=== PATIENT | female | born 1960 | race African-American/Black ===

== ENCOUNTER 2017-11-05 11:25 | Inpatient (IN) | payer OTHER ==
--- NOTE | 2017-11-05 12:16 | RAD REPORT ---
EXAM DESCRIPTION: RAD - Chest Single View - 11/05/2017 12:11 pm CLINICAL HISTORY: Weakness, shortness of breath COMPARISON: None. TECHNIQUE: AP portable chest image was obtained 1200 hours . FINDINGS: Lungs are clear. Heart and vasculature are normal. No measurable pleural effusion and no p neumothorax. No gross bony abnormality seen. No acute aortic findings suspected. IMPRESSION: No acute cardiopulmonary process.
[2017-11-05] MEDS ORDERED: NA CHLORIDE 0.9% 1,000 ML ONE (12:21)
[2017-11-05 12:33] LABS: Absolute Lymphocytes (CBC) 1.3 K/uL (0.7-4.9); Absolute Monocytes 0.7 K/uL (0.1-1.3); Absolute Neutrophil 5.8 K/uL (1.8-8.0); Basophils % 0.7 % (0-1.3); Eosinophils % 1.1 % (0-4.4); Hematocrit 44.3 % (36.0-45.0); Lymphocytes % 16.2 % (15.3-44.8); MCH 29.1 pg (27.0-35.0); MCV 89.1 fL (80-100); MPV 8.9 fL (7.6-11.3); Monocytes % 8.6 % (3.3-12.3); RBC Red Blood Cell Count 4.97 M/uL (3.86-4.86)
[2017-11-05 12:46] LABS: Protime INR 1.16
[2017-11-05 12:56] LABS: Potassium 3.8 mEq/L (3.6-5.0)
[2017-11-05 13:02] LABS: Albumin 4.2 g/dL (3.2-5.5); Bilirubin Direct 0.1 mg/dL (0-0.2); Bilirubin Total 0.7 mg/dL (0.3-1.2); Magnesium 1.7 mg/dL (1.8-2.5); Protein, Total 8.4 g/dL (6.0-8.3)
[2017-11-05] MEDS ORDERED: ENOXAPARIN 100 MG/ML SYR SQ ONE (14:07)
--- NOTE | 2017-11-05 14:08 | ER ---
Nurse's Notes [facility] Name: Karissa Bruno Age: 57 yrs Sex: Female : 1960 Arrival Date: 11/05/2017 Time: 11:31 Bed 4 Private MD: Diagnosis: Shortness of breath;Syncope and collapse- - near syncope;Hypotension Presentation: 11/05 11:33 Presenting complaint: EMS states: "She was at work, got short of breath and dizzy and jl7 sat down. Denies LOC. BP was 70/50.". Transition of care: patient was not received from another setting of care. Onset of symptoms was November 05, 2017. Care prior to arrival: Glucose check: 114. 11:33 Method Of Arrival: EMS: [facility] jl7 11:33 Acuity: CORINNE 2 jl7 Historical: - Allergies: 11:35 No Known Allergies; jl7 - Home Meds: 13:51 Lisinopril Oral [Active]; Atenolol Oral [Active]; jl7 - PMHx: 11:35 Hypertension; jl7 - PSHx: 13:51 Lap band; Lipo of the knee; jl7 - Immunization history:: Adult Immunizations unknown. - Social history:: Smoking status: unknown. Screenin:35 Abuse screen: Denies threats or abuse. Denies injuries from another. Nutritional jl7 screening: No deficits noted. Tuberculosis screening: No symptoms or risk factors identified. Fall Risk IV access (20 points). Total Freeman Fall Scale indicates No Risk (0-24 pts). Assessment: 11:35 General: Appears in no apparent distress. uncomfortable, Behavior is calm, cooperative, jl7 appropriate for age. Pain: Denies pain. Neuro: Level of Consciousness is awake, alert, obeys commands, Oriented to person, place, time, situation. Cardiovascular: Patient's skin is warm and dry. Respiratory: Airway is patent Respiratory effort is even, unlabored, Respiratory pattern is regular, symmetrical. GI: No signs and/or symptoms were reported involving the gastrointestinal system. : No signs and/or symptoms were reported regarding the genitourinary system. EENT: No signs and/or symptoms were reported regarding the EENT system. Derm: Skin is dry, Skin is normal, Skin temperature is warm. Musculoskeletal: No signs and/or symptoms reported regarding the musculoskeletal system. 12:30 Reassessment: No changes from previously documented assessment. Patient and/or family jl7 updated on plan of care and expected duration. Pain level reassessed. Patient is alert, oriented x 3, equal unlabored respirations, skin warm/dry/pink. 13:44 Reassessment: Leora Antonio NP and Dr. Alcantar notified of D-DIMER [id number]. jl7 13:45 Reassessment: Provider at bedside discussing plan of care. jl7 14:30 Reassessment: No changes from previously documented assessment. Patient and/or family jl7 updated on plan of care and expected duration. Pain level reassessed. Patient is alert, oriented x 3, equal unlabored respirations, skin warm/dry/pink. 15:33 Reassessment: Patient and/or family updated on plan of care and expected duration. Pain jl7 level reassessed. Patient is alert, oriented x 3, equal unlabored respirations, skin warm/dry/pink. Vital Signs: 11:32 BP 89 / 54 (auto/); Pulse 70; Resp 20 S; Temp 97.7(O); Pulse Ox 91% on R/A; Weight jl7 115.67 kg (R); Height 5 ft. 4 in. (162.56 cm) (R); Pain 0/10; 12:00 BP 104 / 65; Pulse 67; Resp 18; Pulse Ox 96% on 2 lpm NC; jl7 12:30 BP 92 / 58; Pulse 65; Resp 16; Pulse Ox 98% on 2 lpm NC; jl7 12:46 BP 101 / 66 Supine; Pulse 68; jl7 12:47 BP 106 / 85 Sitting; Pulse 74; jl7 12:49 BP 110 / 81 Standing; Pulse 69; jl7 13:52 BP 112 / 73; Pulse 70; Resp 16 S; Pulse Ox 98% on 2 lpm NC; jl7 14:15 BP 113 / 83; Pulse 75; Resp 18 S; Pulse Ox 97% on 2 lpm NC; jl7 15:00 BP 96 / 58; Pulse 60; Resp 18 S; Pulse Ox 95% on R/A; jl7 15:38 BP 98 / 54; Pulse 62; Resp 20 S; Pulse Ox 98% on 2 lpm NC; jl7 11:32 Body Mass Index 43.77 (115.67 kg, 162.56 cm) jl7 ED Course: 11:31 Patient arrived in ED. jl7 11:35 Triage completed. jl7 11:35 Patient has correct armband on for positive identification. Placed in gown. Bed in low jl7 position. Call light in reach. Side rails up X2. bus monitor on. Pulse ox on. NIBP on. Warm blanket given. 11:35 Arm band placed on right wrist. jl7 11:35 Initial lab(s) drawn, by ED staff, sent to lab. Inserted saline lock: 22 gauge in right jl7 wrist, using aseptic technique. Blood collected. 11:37 Leora Antonio NP is PHCP. rh1 11:37 Abilio Alcantar MD is Attending Physician. rh1 11:57 Avery Santiago RN is Primary Nurse. [facility] 12:09 X-ray completed. Portable x-ray completed in exam room. Patient tolerated procedure ap2 well. 12:10 XRAY Chest (1 view) In Process Unspecified. EDME 12:52 Radiology exam delayed due to lab results not completed at this time. (BUN/Creatinine). j 14:07 Jason Melchro MD is Hospitalizing Provider. rh1 15:42 No provider procedures requiring assistance completed. Patient admitted, IV remains in jl7 place. Administered Medications: 12:15 Drug: NS 0.9% 1000 ml Route: IV; Rate: 1000 ml; Site: right wrist; jl 13:15 Follow up: Response: No adverse reaction; IV Status: Completed infusion jl 14:10 Drug: Lovenox 1 mg/kg Route: Sub-Q; Site: left upper abdomen; [facility] 14:42 Follow up: Response: No adverse reaction [facility] Outcome: 14:08 Decision to Hospitalize by Provider. rh1 15:42 Admitted to Med/surg accompanied by tech, via stretcher, room 225, Report called to [facility] Nurse Ana 15:43 Condition: good [facility] 15:43 Discharge instructions given to patient, family, Instructed on the need for admit, Demonstrated understanding of instructions. 15:45 Patient left the ED. [facility] Signatures: Dispatcher [employer] EDMS Emelia Horner j Leora Antonio, WIND FARM ENGINEER WIND FARM ENGINEER [facility] Avery Santiago, RENEA RN [facility] Peña, Sheba ap2 Corrections: (The following items were deleted from the chart) : 10:30 General: Appears in no apparent distress. uncomfortable, Behavior is calm, jl7 cooperative, appropriate for age, [facility] 10:30 Pain: Denies pain. [place] [id number] 10:30 Neuro: Level of Consciousness is awake, alert, obeys commands, Oriented to [facility] person, place, time, situation, [facility] 10:30 Cardiovascular: Patient's skin is warm and dry. [place] [id number] 10:30 Respiratory: Airway is patent Respiratory effort is even, unlabored, Respiratory [facility] pattern is regular, symmetrical, [facility] 10:30 GI: No signs and/or symptoms were reported involving the gastrointestinal system. [place] [id number] 10:30 : No signs and/or symptoms were reported regarding the genitourinary system. [facility] 10:30 EENT: No signs and/or symptoms were reported regarding the EENT system. [place] [id number] 10:30 Derm: Skin is dry, Skin is normal, Skin temperature is warm [place] [address] 10:30 Musculoskeletal: No signs and/or symptoms reported regarding the musculoskeletal [facility] system. [facility] 12:57 12:48 BP 92 / 58; Pulse 65bpm; Resp 16bpm; Pulse Ox 98% 2 lpm Nasal Cannula; [facility] 13:52 11:32 BP 89 / 54; Pulse 70bpm; Resp 20bpm; Spontaneous; Pulse Ox 96% RA; Temp 97.7F [facility] Oral; 115.67 kg Reported; Height 5 ft. 4 in. Reported; BMI: 43.7; Pain 0/10; [facility] 15 15:00 Patient transferred, IV remains in place. [place] [id number] 15 15:00 No provider procedures requiring assistance completed. [place] [id number] 15:42 Patient transferred, IV remains in place. [place] [id number]
--- NOTE | 2017-11-05 14:08 | EDPHYS ---
Physician Documentation [facility] Name: Karissa Bruno Age: 57 yrs Sex: Female : 1960 Arrival Date: 11/05/2017 Time: 11:31 Bed 4 Private MD: ED Physician Abilio Alcantar HPI: 11/05 11:37 This 57 yrs old Black Female presents to ER via EMS with complaints of Blood Pressure rh1 Problem. 11:37 The patient has experienced near-syncope, almost passed out. Onset: The rh1 symptoms/episode began/occurred just prior to arrival, this morning. Duration: This was a single episode. Context: occurred at work, occurred while the patient was standing, Just prior to the episode the patient experienced SOB. Associated injury: The patient did not suffer any apparent associated injury. Associated signs and symptoms: Pertinent positives: lightheadedness, shortness of breath, Pertinent negatives: abdominal pain, agitation, ataxia, blurred vision, chest pain, combativeness, confusion, diaphoresis, diarrhea, dizziness, headache, nausea, numbness, palpitations, tingling, vertigo, vomiting, weakness. Current symptoms: Currently, the patient is not experiencing any symptoms. The patient has experienced a previous episode, many years ago. The patient has not recently seen a physician. Pt. reports she began with feeling SOB while standing at work today, since 0830 this am. SOB increased with exertion. 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 She was able to sit in a chair and her symptoms improved, now while lying in bed she denies symptoms. She had no chest pain, no palpitations, denies any coughing, no abdominal pain, N/V. Diarrhea x 1 episode yesterday.. Historical: - Allergies: 11:35 No Known Allergies; jl7 - Home Meds: 13:51 Lisinopril Oral [Active]; Atenolol Oral [Active]; jl7 - PMHx: 11:35 Hypertension; jl7 - PSHx: 13:51 Lap band; Lipo of the knee; jl7 - Immunization history:: Adult Immunizations unknown. - Social history:: Smoking status: unknown. ROS: 11:37 Constitutional: Negative for fever, chills rh1 11:37 Eyes: Negative for acute changes, blurry vision, vision loss, visual disturbance. 11:37 ENT: Negative for sore throat, difficulty swallowing, difficulty handling secretions, hoarseness. 11:37 Cardiovascular: Negative for chest pain, edema, orthopnea, palpitations. 11:37 Respiratory: Positive for dyspnea on exertion, shortness of breath, Negative for cough, hemoptysis, wheezing. 11:37 Abdomen/GI: Positive for diarrhea, Negative for abdominal pain, nausea and vomiting. 11:37 Back: Negative for decreased range of motion, pain at rest, pain with movement, radiated pain. 11:37 : Negative for urinary symptoms, small amounts. 11:37 MS/extremity: Negative for decreased range of motion, pain, paresthesias, swelling, tenderness. 11:37 Skin: Negative for diaphoresis, rash. 11:37 Neuro: Positive for dizziness, near syncope, Negative for altered mental status, headache, loss of consciousness, numbness, syncope, tingling, weakness. 11:37 All other systems are negative. Exam: 11:37 Constitutional: This is a well developed, well nourished patient who is awake, alert, rh1 and in no acute distress. Head/Face: Normocephalic, atraumatic. 11:37 ENT: Nares patent. No nasal discharge, no septal abnormalities noted. Tympanic membranes are normal and external auditory canals are clear. Oropharynx with no redness, swelling, or masses, exudates, or evidence of obstruction, uvula midline. Mucous membranes moist. Neck: Trachea midline, and no cervical lymphadenopathy. Supple, full range of motion without nuchal rigidity. No Meningismus. Chest/axilla: Normal chest wall appearance and motion. Nontender with no deformity. No lesions are appreciated. Cardiovascular: Regular rate and rhythm with a normal S1 and S2. No gallops, murmurs, or rubs. No JVD. No pulse deficits. Respiratory: Lungs have equal breath sounds bilaterally, clear to auscultation. No rales, rhonchi or wheezes noted. No increased work of breathing. Abdomen/GI: Soft, non-tender, with normal bowel sounds. No distension. No guarding or rebound. No evidence of tenderness throughout. Back: No spinal tenderness. No costovertebral tenderness. Full range of motion. Skin: Warm, dry with normal turgor. Normal color with no rashes, no lesions, and no evidence of cellulitis. MS/ Extremity: Pulses equal, no cyanosis. Neurovascular intact. Full, normal range of motion. 11:37 Eyes: Pupils: no acute changes, normal size, normal reaction to light, equal, right pupil is approximately 3 mm(s), left pupil is approximately 3 mm(s), Extraocular movements: intact throughout, Nystagmus: is not appreciated. 11:37 Musculoskeletal/extremity: Calves: are non-tender, have equal circumference. 11:37 Neuro: Orientation: is normal, to person, place \T\ time. Mentation: is normal, lucid, able to follow commands, Cranial nerves: visual portillo are intact. extraocular movements are intact, Facial palsy and sensory deficits are absent. no gross hearing deficit,. Nystagmus is absent. Speech is clear and appropriate. Gag reflex present. Tongue strength is normal, deviation is absent. Cerebellar function: normal finger to nose testing, heel to leigh testing is normal, Motor: is normal, moves all fours, strength is 5/5 in all extremities, Sensation: is normal, no obvious gross deficits, numbness, is not appreciated, tingling, is not appreciated. Vital Signs: 11:32 BP 89 / 54 (auto/); Pulse 70; Resp 20 S; Temp 97.7(O); Pulse Ox 91% on R/A; Weight jl7 115.67 kg (R); Height 5 ft. 4 in. (162.56 cm) (R); Pain 0/10; 12:00 BP 104 / 65; Pulse 67; Resp 18; Pulse Ox 96% on 2 lpm NC; jl7 12:30 BP 92 / 58; Pulse 65; Resp 16; Pulse Ox 98% on 2 lpm NC; jl7 12:46 BP 101 / 66 Supine; Pulse 68; jl7 12:47 BP 106 / 85 Sitting; Pulse 74; jl7 12:49 BP 110 / 81 Standing; Pulse 69; jl7 13:52 BP 112 / 73; Pulse 70; Resp 16 S; Pulse Ox 98% on 2 lpm NC; jl7 14:15 BP 113 / 83; Pulse 75; Resp 18 S; Pulse Ox 97% on 2 lpm NC; jl7 15:00 BP 96 / 58; Pulse 60; Resp 18 S; Pulse Ox 95% on R/A; jl7 15:38 BP 98 / 54; Pulse 62; Resp 20 S; Pulse Ox 98% on 2 lpm NC; jl7 11:32 Body Mass Index 43.77 (115.67 kg, 162.56 cm) jl7 MDM: 11:37 Patient medically screened. rh1 12:30 ED course: . rh1 14:06 Data reviewed: vital signs, nurses notes, lab test result(s), EKG, radiologic studies, rh1 plain films, I have discussed the patient's presentation/case with the attending Emergency Department Physician; and as a result, I will admit patient. Data interpreted: Pulse oximetry: on 2L(s) per nasal canula, is 98 %. Interpretation: acceptable. Counseling: I had a detailed discussion with the patient and/or guardian regarding: the historical points, exam findings, and any diagnostic results supporting the discharge/admit diagnosis, lab results, radiology results, the need for further work-up and treatment in the hospital. Physician consultation: Jason Melchor MD was called at 14:06, was contacted at 14:06, regarding admission, consult, and will see patient in ED, shortly. 11/05 11:46 Order name: Basic Metabolic Panel; Complete Time: 13:05 11/05 11:46 Order name: BNP; Complete Time: 13:07 11/05 11:46 Order name: CBC with Diff; Complete Time: 12:44 11/05 11:46 Order name: Ckmb; Complete Time: 13:05 11/05 11:46 Order name: CPK; Complete Time: 13:05 11/05 11:46 Order name: LFT's; Complete Time: 13:05 11/05 11:46 Order name: Magnesium; Complete Time: 13:05 11/05 11:46 Order name: PT-INR; Complete Time: 12:53 11/05 11:46 Order name: Ptt, Activated; Complete Time: 12:53 11/05 11:46 Order name: Troponin (emerg Dept Use Only); Complete Time: 13:05 11/05 11:46 Order name: XRAY Chest (1 view); Complete Time: 12:19 11/05 13:16 Order name: D-Dimer; Complete Time: 13:55 11/05 14:52 Order name: Urine Dipstick--Ancillary (enter results) ag 11/05 15:00 Order name: ABG Arterial Blood Gas; Complete Time: 15:02 [facility] 11/05 11:46 Order name: EKG; Complete Time: 11:47 1 11/05 11:46 Order name: Cardiac monitoring; Complete Time: 11:57 rh1 11/05 11:46 Order name: EKG - Nurse/Tech; Complete Time: 11:[address] [facility] 11/05 11:46 Order name: IV Saline Lock; Complete Time: 12:48 1 11/05 11:46 Order name: Labs collected and sent; Complete Time: 12:48 1 11/05 11:46 Order name: O2 Per Protocol; Complete Time: 11:[address] [facility] 11/05 11:46 Order name: O2 Sat Monitoring; Complete Time: 11:[address] [facility] 11/05 11:46 Order name: Urine Dipstick-Ancillary (obtain specimen); Complete Time: 14:[address] [facility] 11/05 11:46 Order name: Orthostatic Blood Pressure; Complete Time: 12:55 rh1 Administered Medications: 12:15 Drug: NS 0.9% 1000 ml Route: IV; Rate: 1000 ml; Site: right wrist; jl7 13:15 Follow up: Response: No adverse reaction; IV Status: Completed infusion jl7 14:10 Drug: Lovenox 1 mg/kg Route: Sub-Q; Site: left upper abdomen; jl7 14:42 Follow up: Response: No adverse reaction jl7 Disposition: 16:25 Co-signature as Attending Physician, Abilio Alcantar MD I agree with the assessment and kdr plan of care. Disposition: 11/05/17 14:08 Hospitalization ordered by Jason Melchor for Observation. Preliminary diagnosis are Shortness of breath, Syncope and collapse - - near syncope, Hypotension. - Bed requested for Telemetry/MedSurg (observation). - Status is Observation. jl7 - Condition is Stable. - Problem is new. - Symptoms have improved. UTI on Admission? No Signatures: Dispatcher [employer] [facility] Rafaela Ramsye RN RN dw Rittger, Kevin, MD MD kdr Leora Antonio, CUSTOMER MARKETING INTERN CUSTOMER MARKETING INTERN rh1 Avery Santiago RN RN jl7 Corrections: (The following items were deleted from the chart) 13:21 12:34 Chest For PE Angio+CT.RAD.BRZ ordered. EDMS EDMS
--- NOTE | 2017-11-05 14:38 | P.HP ---
Certification for Inpatient Patient admitted to: Inpatient With expected LOS: >2 Midnights Practitioner: I am a practitioner with admitting privileges, knowledge of patient current condition, hospital course, and medical plan of care. Services: Services provided to patient in accordance with Admission requirements found in Title 42 Section 412.3 of the Code of Federal Regulations Patient History Date of Service: 11/05/17 Reason for admission: Shortness of breath syncopal attack hypotension History of Present Illness: Patient is a 57 years of age admitted with acute onset of shortness of breath and hypertension no prior cardiopulmonary problems before patient is never smoked and a history of hypertension and mild renal insufficiency the physicians given Mike and clear Stewart patient admitted with a near syncopal attacked hypertension - Past Medical/Surgical History -: Hypertension -: And renal insufficiency -: Knee surgery - Social History Smoking Status: Never smoker Review of Systems 10-point ROS is otherwise unremarkable Physical Examination - Physical Exam General: Alert, Oriented x3 HEENT: Atraumatic Neck: Supple Respiratory: Clear to auscultation bilaterally Cardiovascular: No edema, Normal S1 S2 Capillary refill: <2 Seconds Gastrointestinal: Normal bowel sounds, Soft and benign, Non-distended Musculoskeletal: No clubbing, No swelling Integumentary: No rashes, No significant lesion Neurological: Normal gait, Normal speech, Cranial nerves 3-12 intact - Studies Laboratory Data (last 24 hrs) 11/05/17 12:18: PT 13.7 H, INR 1.16, APTT 26.4 11/05/17 12:18: WBC 7.9, Hgb 14.5, Hct 44.3, Plt Count 301 11/05/17 12:18: B-Natriuretic Peptide 14 11/05/17 12:18: Sodium 138, Potassium 3.8, BUN 22 H, Creatinine 2.06 H, Glucose 89, Magnesium 1.7 L, Total Bilirubin 0.7, AST 19, ALT 18, Alkaline Phosphatase 78 Assessment and Plan - Problems (Diagnosis) (1) Hypotension Current Visit: Yes Status: Acute Plan: Patient is a 57 years of age limit of acute onset of shortness of breath hypotension patient as well clinical probability for thromboembolism denies any history of DVT and is factors and D-dimer is elevated under note insufficiency agreed to anticoagulants the patient rated lower garsia the fluids creatinine improves to consider doing a CT angiogram tomorrow 30 echocardiogram ordered IV fluids Lonox venous Dopplers Qualifiers: Hypotension type: unspecified hypotension type Qualified Code(s): I95.9 - Hypotension, unspecified - Advance Directives Does patient have a Living Will: No Does patient have a Durable POA for Healthcare: No
[2017-11-05 14:59] LABS: Arterial Blood Carboxyhemoglob 0.6 % (0-1.5); Blood Gas Oxyhemoglobin 92.1 % (94-97); Blood O2 Saturation 93.4 % (92-98.5)
[2017-11-05] MEDS: NA CHLORIDE 0.9% 1,000 ML IV SCH (16:10)
[2017-11-05 16:40] LABS: Urine Blood NEGATIVE (NEG); Urine Glucose NEGATIVE (NEG); Urine Protein NEGATIVE (NEG); Urine pH 5.5 (5.0-7.0)
--- NOTE | 2017-11-05 19:46 | RAD REPORT ---
EXAM DESCRIPTION: VAS - Extrem Venous W Compress Mateo - 11/05/2017 7:40 pm CLINICAL HISTORY: Leg pain COMPARISON: None. TECHNIQUE: Real-time sonographic evaluation of the bilateral lower extremity deep venous systems was performed. FINDINGS: Normal compressibility, flow augmentation, phasic flow and spontaneous flow are identified in the left and right lower extremity deep venous systems. No intraluminal filling defects seen. IMPRESSION: No DVT in either lower extremity.
--- NOTE | 2017-11-05 22:31 | EKG ---
Test Date: 2017-11-05 Test Time: 11:35:07 Conveyor Technician: RONALD MEASUREMENT RESULTS: Intervals: Rate: 67 LA: 158 QRSD: 96 QT: 416 QTc: 439 [place]: P: 28 LA: 158 QRS: -35 T: 57 INTERPRETIVE STATEMENTS: Normal sinus rhythm Left axis deviation Voltage criteria for left ventricular hypertrophy Abnormal ECG No previous ECG available for comparison Electronically Signed On 11-05-17 22:29:55 CDT by Ahmet Liu
[2017-11-06] MEDS: NA CHLORIDE 0.9% 1,000 ML IV SCH ×2 (00:44→10:48)
[2017-11-06 05:31] LABS: Potassium 3.9 mEq/L (3.6-5.0)
[2017-11-06] MEDS ORDERED: ENOXAPARIN 100 MG/ML SYR SQ SCH ×2 (09:00→21:00)
[2017-11-06] MEDS ORDERED: ONDANSETRON 4 MG/2 ML VIAL IV PRN (10:53)
--- NOTE | 2017-11-06 11:05 | ECHO ---
HEIGHT: 5 ft 4 in WEIGHT: 255 lb 0 oz DATE OF STUDY: 11/06/[address]: Jason Melchor MD 2-DIMENSIONAL: YES M.MODE: YES DOPPLER: YES COLOR FLOW: YES TDS: NO PORTABLE: NO DEFINITY: NO BUBBLE STUDY: NO DIAGNOSIS: PULMONARY EMBOLISM CARDIAC HISTORY: CATHERIZATION: NO SURGERY: NO PROSTHETIC VALVE: NO PACEMAKER: NO MEASUREMENTS (cm) DIASTOLIC (NORMALS) SYSTOLIC (NORMALS) IVSd 1.1 (0.6-1.2) LA Diam 2.8 (1.9-4.0) LVEF 79% LVIDd 4.7 (3.5-5.7) LVIDs 2.4 (2.0-3.5) %FS 48% LVPWd 1.1 (0.6-1.2) Ao Diam 2.7 (2.0-3.7) 2 DIMENSIONAL ASSESSMENT: RIGHT ATRIUM: NORMAL LEFT ATRIUM: NORMAL RIGHT VENTRICLE: NORMAL LEFT VENTRICLE: NORMAL TRICUSPID VALVE: NORMAL MITRAL VALVE: NORMAL PULMONIC VALVE: NORMAL AORTIC VALVE: NORMAL PERICARDIAL EFFUSION: NONE AORTIC ROOT: NORMAL LEFT VENTRICULAR WALL MOTION: NORMAL. DOPPLER/COLOR FLOW: MILD TRICUSPID REGURGITATION. NORMAL RIGHT VENTRICULAR SYSTOLIC PRESSURE. COMMENTS: NORMAL 2D ECHO. MILD TRICUSPID REGURGITATION. TECHNOLOGIST: HARVEY GARCIA
--- NOTE | 2017-11-06 11:29 | PN ---
Date of Progress Note: 11/06/2017 Subjective: The patient is seen and examined, chart reviewed, and case discussed with RN. The patient states that shortness of breath has significantly improved. No further near syncopal episodes. Review of Systems: Negative except as above. Medications: Reviewed. Physical Examination: Vital Signs: Temperature 98.1, heart rate 78, blood pressure 124/85, respirations 20, O2 97% on room air. General: Awake, alert, oriented x3, in some mild distress, morbidly obese female. BMI 43.8, somewhat ill-appearing. CV: S1, S2. No murmurs. Regular rate and rhythm. Peripheral pulses present bilaterally. Respiratory: Moving air well bilaterally. No wheezing. No stridor. Gastrointestinal: Abdomen is soft, nontender, nondistended. Positive bowel sounds. No guarding or rigidity. Extremities: No clubbing, cyanosis, or edema. Neurologic: Nonfocal. Laboratory Data: Sodium 140, potassium 3.9, chloride 105, CO2 27, BUN 22, creatinine 1.29, glucose 87, calcium 9.1. Troponin less than 0.03. CT angio chest pending. Assessment And Plan: A 57-year-old female with: 1. Near syncopal episode, likely secondary to hypotension. Blood pressure is improved. We will continue with IV fluids. 2. Hypertension. Hold blood pressure medications now, continue IV fluid hydration. 3. Shortness of breath, possible pulmonary embolism. CT angio chest has been ordered. D-dimer is elevated. Clinical probability is high. The patient currently on Lovenox. We will adjust dose to b.i.d. as her creatinine has improved. 4. Acute kidney injury, creatinine improved, likely secondary to dehydration. We will continue to monitor. 5. Gastrointestinal and deep venous thrombosis prophylaxis with PPI and Lovenox. 6. Dyslipidemia. Continue statin. SA/MODL Voice ID: [id number] Report ID: [id number] MARISOL
--- NOTE | 2017-11-06 11:48 | RAD REPORT ---
EXAM DESCRIPTION: CT - Chest For Pe Angio - 11/06/2017 11:39 am CLINICAL HISTORY: Chest pain. Hypertension, shortness of breath. COMPARISON: None. TECHNIQUE: CT angiogram of the pulmonary arteries was performed with MIP. All CT scans are performed using dose optimization technique as appropriate and may include automated exposure control or mA/KV adjustment according to patient size. FINDINGS: No evidence of pulmonary thromboembolism. No acute aortic finding demonstrated. The lungs are clear. No significant pericardial or pleural fluid. No concerning bony finding. Gastric banding noted. IMPRESSION: No evidence of pulmonary thromboembolism. No acute lung findings.
--- NOTE | 2017-11-06 15:38 | P.DS ---
Admission Date: 11/05/17 Discharge Date: 11/06/17 Disposition: ROUTINE DISCHARGE Discharge Condition: GOOD Reason for Admission: Shortness of breath syncopal attack hypotension Consultations: PULMONOLOGY DR. VILA - Problems (1) Hyperlipidemia Status: Acute (2) Morbid obesity Status: Acute (3) Hypotension Onset Date: 11/06/17 Status: Acute Qualifiers: Hypotension type: unspecified hypotension type Qualified Code(s): I95.9 - Hypotension, unspecified Brief History of Present Illness: from H and P Patient is a 57 years of age admitted with acute onset of shortness of breath and hypotension no prior cardiopulmonary problems before patient is never smoked and a history of hypertension and mild renal insufficiency the physicians given [place] and [place] patient admitted with a near syncopal attacked hypotension Hospital Course: Patient is a 57-year-old female who was admitted to the hospital for hypotension near syncopal episode shortness of breath. Patient was clinically suspected to have PE, elevated D-dimer she was started on blood thinners. CT angio was done the following day due to improvement in her creatinine initially creatinine was 2. CT angio was negative for PE Doppler ultrasound was negative for DVT. Patient was able to be weaned off of oxygen. Her creatinine function improved with IV fluid hydration. Her lisinopril was held. Her blood pressure also improved. Patient was able to ambulate and did not have any desaturations. Patient with 100% on room air after ambulation. Patient was then cleared for discharge from pulmonology standpoint. Patient sees infectious waste technician in [place] and was instructed to follow up with them in the next couple of weeks. Patient will also follow up with water registrar for further workup including PFTs as an outpatient within the next couple weeks. Patient was then discharged home in a stable condition Vital Signs/Physical Exam: Temp Pulse Resp BP Pulse Ox 98.9 F 63 20 110/62 98 11/06/17 12:00 11/06/17 12:00 11/06/17 12:00 11/06/17 12:00 11/06/17 12:00 Other Physical/Emotional Findings: FOR PHYSICAL EXAM FINDINGS PLEASE SEE PROGRESS NOTE DICTATED ON DAY OF DISCHARGE Laboratory Data at Discharge: WBC 7.9 K/uL (4.3-10.9) 11/05/17 12:18 Hgb 14.5 g/dL (12.0-15.0) 11/05/17 12:18 Hct 44.3 % (36.0-45.0) 11/05/17 12:18 Plt Count 301 K/uL (152-406) 11/05/17 12:18 PT 13.7 SECONDS (9.5-12.5) H 11/05/17 12:18 INR 1.16 11/05/17 12:18 APTT 26.4 SECONDS (24.3-36.9) 11/05/17 12:18 Sodium 140 mEq/L (135-145) 11/06/17 04:27 Potassium 3.9 mEq/L (3.6-5.0) 11/06/17 04:27 BUN 22 mg/dL (6-20) H 11/06/17 04:27 Creatinine 1.29 mg/dL (0.44-1.00) H 11/06/17 04:27 Glucose 87 mg/dL (65-120) 11/06/17 04:27 Magnesium 1.7 mg/dL (1.8-2.5) L 11/05/17 12:18 Total Bilirubin 0.7 mg/dL (0.3-1.2) 11/05/17 12:18 AST 19 IU/L (10-42) 11/05/17 12:18 ALT 18 IU/L (10-60) 11/05/17 12:18 Alkaline Phosphatase 78 IU/L (42-121) 11/05/17 12:18 B-Natriuretic Peptide 14 pg/ml (<=100) 11/05/17 12:18 Home Medications: Atenolol [Tenormin*] 25 mg PO BEDTIME 11/05/17 Pravastatin Sodium 20 mg PO BEDTIME 11/05/17 Patient Discharge Instructions: Follow up with pulmonology Dr. Melchor in 1 week. Follow up with PCP in 2-3 days. Follow up with infectious waste technician in [place] in 2 weeks. Turn to ER for worsening condition Diet: AHA Activity: Ad fede Followup: Jason Melchor MD [ACTIVE - CAN ADMIT] - Time spent managing pt's care (in minutes): 32
[2017-11-06] MEDS ORDERED: ATORVASTATIN 10 MG TAB PO SCH (21:00)
== END 2017-11-06 14:22 | disposition home or self-care (01) | DRG 315 ==
LOC: ER 11:25 → ERHOLD 14:08 → OBSVTOIN 14:08 → 2ND 15:42
PROVIDERS: ADMIT Internal Medicine Sleep Medicine; ATTEND Internal Medicine Sleep Medicine
DX: I95.9 Hypotension, unspecified (principal); N17.9 Acute kidney failure, unspecified; Z68.41 Body mass index [BMI] 40.0-44.9, adult; R55 Syncope and collapse; R06.02 Shortness of breath; I10 Essential (primary) hypertension; E78.5 Hyperlipidemia, unspecified; E66.01 Morbid (severe) obesity due to excess calories
CPT/HCPCS: 36415; 71045; 71275; 80048; 80076; 81003; 82550; 82553; 82805; 83735; 83880; 84484; 85025; 85379; 85610; 85730; 93005; 93306; 93970; 96360; 96372; 99285; J1650; J7030; Q9967

== ENCOUNTER 2018-01-10 00:54 | Inpatient (IN) | payer OTHER ==
[2018-01-10] MEDS ORDERED: ONDANSETRON 4 MG/2 ML VIAL ONE ×2 (01:21→03:13)
[2018-01-10] MEDS ORDERED: NA CHLORIDE 0.9% 1,000 ML ONE (01:21)
[2018-01-10] MEDS ORDERED: FENTANYL CITR 100 MCG/2 ML ONE (02:04)
[2018-01-10] MEDS ORDERED: FAMOTIDINE 20 MG/2 ML VIAL IV ONE (02:05)
[2018-01-10 02:30] LABS: Absolute Lymphocytes (CBC) 0.7 K/uL (0.7-4.9); Absolute Monocytes 0.5 K/uL (0.1-1.3); Absolute Neutrophil 8.2 K/uL (1.8-8.0); Basophils % 0.9 % (0-1.3); Eosinophils % 1.1 % (0-4.4); Hematocrit 43.3 % (36.0-45.0); Lymphocytes % 7.7 % (15.3-44.8); MCH 28.7 pg (27.0-35.0); MPV 9.5 fL (7.6-11.3); Monocytes % 4.9 % (3.3-12.3); RBC Red Blood Cell Count 4.86 M/uL (3.86-4.86)
[2018-01-10 02:41] LABS: Albumin 3.6 g/dL (3.4-5.0); Bilirubin Direct 0.1 mg/dL (0-0.2); Bilirubin Total 0.4 mg/dL (0.2-1.0); Potassium 3.8 mmol/L (3.5-5.1); Protein, Total 8.2 g/dL (6.4-8.2)
[2018-01-10 04:17] LABS: Blood Morphology Comment NOT SEEN (NOT SEEN); Platelet Estimate ADEQ
[2018-01-10 04:39] LABS: Urine Bacteria <20 /HPF (<20); Urine Culture Reflex Order NOT NEEDED; Urine RBC <5 /HPF (NONE SEEN)
[2018-01-10 04:45] LABS: Urine Blood NEGATIVE (NEG); Urine Glucose NEGATIVE (NEG); Urine Protein 1+ (NEG); Urine pH 8.5 (5.0-7.0)
--- NOTE | 2018-01-10 06:14 | EDPHYS ---
Physician Documentation [facility] Name: Karissa Bruno Age: 57 yrs Sex: Female : 1960 Arrival Date: 01/10/2018 Time: 00:55 Bed 15 Private MD: Out, [facility] ED Physician Cuco Sandoval HPI: 01/10 01:42 This 57 yrs old Black Female presents to ER via Ambulatory with complaints of Abdominal cp Cramping. 01:42 The patient presents with abdominal pain that is diffuse. cp 01:42 Onset: The symptoms/episode began/occurred today. Associated signs and symptoms: cp Pertinent positives: diarrhea, nausea, Pertinent negatives: blood in stools, chest pain, constipation, dysuria, fever, headache, vomiting blood. The symptoms are described as constant. Historical: - Allergies: 01:11 No Known Allergies; ao - Home Meds: 01:11 Atenolol Oral [Active]; lisinopril 20 mg oral tab 1 tab once daily [Active]; ao pravastatin 20 mg oral tab [Active]; Cipro Oral [Active]; Vitamin D Oral [Active]; - PMHx: 01:11 Hypertension; UTI; ao - PSHx: 01:11 None; ao - Immunization history:: Adult Immunizations up to date. - Social history:: Smoking status: Patient/guardian denies using tobacco, Patient uses alcohol, occasionally. Patient/guardian denies using street drugs. - Ebola Screening: : Patient negative for fever greater than or equal to 101.5 degrees Fahrenheit, and additional compatible Ebola Virus Disease symptoms Patient denies exposure to infectious person Patient denies travel to an Ebola-affected area in the 21 days before illness onset. ROS: 01:45 Constitutional: Negative for body aches, chills, fever, poor PO intake. cp 01:45 Eyes: Negative for injury, pain, redness, and discharge. cp 01:45 ENT: Negative for drainage from ear(s), ear pain, sore throat, difficulty swallowing, difficulty handling secretions. 01:45 Cardiovascular: Negative for chest pain, edema, palpitations. 01:45 Respiratory: Negative for cough, shortness of breath, wheezing. 01:45 Abdomen/GI: Positive for abdominal pain, nausea, diarrhea, abdominal cramps, Negative for vomiting, black/tarry stool, rectal bleeding. 01:45 Back: Negative for radiated pain. 01:45 : Negative for urinary symptoms. 01:45 Skin: Negative for cellulitis, rash. 01:45 Neuro: Negative for dizziness, headache, weakness. 01:45 All other systems are negative. Exam: 01:52 Constitutional: The patient appears in no acute distress, alert, awake, non-toxic, well cp developed, well nourished, uncomfortable. 01:52 Head/Face: Normocephalic, atraumatic. cp 01:52 Eyes: Periorbital structures: appear normal, Conjunctiva: normal, no exudate, no cp injection, Lids and lashes: appear normal, bilaterally. 01:52 ENT: External ear(s): are unremarkable, Nose: is normal, Mouth: Lips: moist, Oral cp mucosa: moist, Posterior pharynx: is normal, airway is patent, no erythema, no exudate, Voice: is normal. 01:52 Neck: ROM/movement: is normal, is supple, without pain, no range of motions limitations, no nuchal rigidity. 01:52 Chest/axilla: Inspection: normal, Palpation: is normal, no crepitus, no tenderness. 01:52 Cardiovascular: Rate: normal, Rhythm: regular, Edema: is not appreciated, JVD: is not appreciated. 01:52 Respiratory: the patient does not display signs of respiratory distress, Respirations: normal, no use of accessory muscles, no retractions, no splinting, no tachypnea, labored breathing, is not present, Breath sounds: are clear throughout, no decreased breath sounds, no stridor, no wheezing. 01:52 Abdomen/GI: Inspection: obese Bowel sounds: active, all quadrants, Palpation: soft, in all quadrants, moderate abdominal tenderness, in all quadrants, rebound tenderness, is not appreciated, voluntary guarding, is not appreciated, involuntary guarding, is not appreciated. 01:52 Back: pain, is absent, ROM is normal. 01:52 Skin: cellulitis, is not appreciated, no rash present. Vital Signs: 01:08 BP 180 / 102; Pulse 70; Resp 20; Temp 98.6(O); Pulse Ox 100% on R/A; Weight 99.79 kg ao (R); Height 5 ft. 5 in. (165.10 cm) (R); Pain 10/10; 02:10 BP 172 / 96; Pulse 70; Resp 18; Pulse Ox 99% ; ao 03:03 BP 166 / 94; Pulse 74; Resp 16; Pulse Ox 97% on R/A; ao 04:41 BP 165 / 74; Pulse 72; Resp 16; Pulse Ox 99% on R/A; ao 05:53 BP 155 / 72; Pulse 71; Resp 16; Pulse Ox 97% on R/A; ao 07:46 BP 142 / 70; Pulse 70; Resp 18; Temp 98.6; Pulse Ox 96% on R/A; Pain 4/10; sg 01:08 Body Mass Index 36.61 (99.79 kg, 165.10 cm) ao MDM: 01:38 Patient medically screened. cp 02:10 Differential diagnosis: appendicitis, cholecystitis, Cholelithiasis, diverticulitis, cp gastritis, GI Bleed, non-specific abd pain, pancreatitis, Ureterolithiasis, urinary tract infection. 03:00 Data reviewed: vital signs, nurses notes, lab test result(s). cp 03:00 Transition of care: After a detail discussion of the patient's case, care is cp transferred to Cuco Sandoval MD. 01/10 01:46 Order name: Amylase, Serum; Complete Time: 02:49 cp 01/10 02:49 Interpretation: Abnormal: SOHAM 130. cp 01/10 01:46 Order name: Basic Metabolic Panel; Complete Time: 02:49 cp 01/10 02:49 Interpretation: Normal except: GLUC 126; BUN 19; GFR 56. cp 01/10 01:46 Order name: CBC with Diff; Complete Time: 05:08 cp 01/10 02:50 Interpretation: Normal except: SETH% 85.4; LYM% 7.7; NEUT A 8.2. cp 01/10 01:46 Order name: Creatinine for Radiology; Complete Time: 02:49 cp 01/10 02:50 Interpretation: Abnormal: GFR 56. cp 01/10 01:46 Order name: Hepatic Function; Complete Time: 02:49 cp 01/10 02:50 Interpretation: Normal except: GLOB 4.6; A/G 0.8. cp 01/10 01:46 Order name: Lipase; Complete Time: 02:49 cp 01/10 01:46 Order name: Urine Microscopic Only; Complete Time: 05:08 cp 01/10 01:46 Order name: CT Abd/Pelvis - W/Contrast cp 01/10 02:31 Order name: Manual Differential; Complete Time: 05:08 EDMS 01/10 03:10 Order name: Urine Dipstick--Ancillary (enter results) eb 01/10 03:10 Order name: Urine Dipstick-Ancillary; Complete Time: 05:08 EDMS 01/10 06:23 Order name: Abdomen W Erect EDSC 01/10 01:46 Order name: IV Saline Lock; Complete Time: 01:55 cp 01/10 01:46 Order name: Labs collected and sent; Complete Time: 03:18 cp 01/10 01:46 Order name: Urine Dipstick-Ancillary (obtain specimen); Complete Time: 03:19 cp 01/10 06:20 Order name: CONS Pharmacy Consult EDSC 01/10 06:20 Order name: NPO EDSC Administered Medications: 01:54 Drug: NS 0.9% 1000 ml Route: IV; Rate: 1 bolus; Site: right antecubital; ao 03:17 Follow up: IV Status: Completed infusion; IV Intake: 1000ml ao 02:09 Drug: Pepcid 20 mg Route: IVP; Site: right forearm; ao 03:18 Follow up: Response: No adverse reaction ao 02:09 Not Given (Unable to get medication in ER. Page changed to Fentanyl 25 Mcg): morphine 4 ao mg IVP once 02:10 Drug: Zofran 4 mg Route: IVP; Site: right forearm; ao 03:18 Follow up: Response: No adverse reaction ao 02:10 Drug: fentaNYL (PF) 25 mcg Route: IVP; Site: right forearm; ao 03:17 Follow up: Response: No adverse reaction ao 03:16 Drug: Zofran 4 mg Route: IVP; Site: right forearm; ao 05:52 Follow up: Response: No adverse reaction ao 03:17 Drug: fentaNYL (PF) 25 mcg Route: IVP; Site: right forearm; ao 05:52 Follow up: Response: No adverse reaction ao Disposition: 01/10/18 06:13 Hospitalization ordered by Radha Rawls for Inpatient Admission. Preliminary diagnosis is Small Bowel Obstruction. - Bed requested for Telemetry/MedSurg (Inpatient). - Status is Inpatient Admission. sg - Condition is Stable. - Problem is new. - Symptoms are unchanged. UTI on Admission? No Addendum: 01/12/2018 12:41 Co-signature as Attending Physician, Cuco Sandoval MD Available for consultation at p s1 all times. . Signatures: Dispatcher [employer] EDMS Juan Rodriguez RN RN sg Eric Encinas PA PA cp Chalino Kwok RN RN ao Cuco Sandoval MD MD ps1 Ebony Chávezlesvia roque Corrections: (The following items were deleted from the chart) 01/10 01:55 01:46 Urine Test ordered. cp ao 06:36 06:13 Hospitalization Ordered by Radha Rawls MD for Inpatient Admission. Preliminary eb diagnosis is Small Bowel Obstruction. Bed requested for Telemetry/MedSurg (Inpatient). Status is Inpatient Admission. Condition is Stable. Problem is new. Symptoms are unchanged. UTI on Admission? No. ps1 08:10 06:36 01/10/2018 06:13 Hospitalization Ordered by Radha Rawls MD for Inpatient sg Admission. Preliminary diagnosis is Small Bowel Obstruction. Bed requested for Telemetry/MedSurg (Inpatient). Status is Inpatient Admission. Condition is Stable. Problem is new. Symptoms are unchanged. UTI on Admission? No. eb
--- NOTE | 2018-01-10 06:14 | ER ---
Nurse's Notes [facility] Name: Karissa Bruno Age: 57 yrs Sex: Female : 1960 Arrival Date: 01/10/2018 Time: 00:55 Bed 15 Private MD: Out, [facility] Diagnosis: Small Bowel Obstruction Presentation: 01/10 01:06 Presenting complaint: Patient states: "I eat then I started to cramp and burping with ao diarrhea.". Transition of care: patient was not received from another setting of care. Onset of symptoms was January 09, 2018 at 19:00. Risk Assessment: Do you want to hurt yourself or someone else? Patient reports no desire to harm self or others. Initial Sepsis Screen: Does the patient meet any 2 criteria? No. Patient's initial sepsis screen is negative. Does the patient have a suspected source of infection? No. Patient's initial sepsis screen is negative. Care prior to arrival: None. 01:06 Method Of Arrival: Ambulatory ao 01:06 Acuity: CORINNE 3 ao Triage Assessment: 01:24 General: Behavior is calm, cooperative, appropriate for age. ao Historical: - Allergies: 01:11 No Known Allergies; ao - Home Meds: 01:11 Atenolol Oral [Active]; lisinopril 20 mg oral tab 1 tab once daily [Active]; ao pravastatin 20 mg oral tab [Active]; Cipro Oral [Active]; Vitamin D Oral [Active]; - PMHx: 01:11 Hypertension; UTI; ao - PSHx: 01:11 None; ao - Immunization history:: Adult Immunizations up to date. - Social history:: Smoking status: Patient/guardian denies using tobacco, Patient uses alcohol, occasionally. Patient/guardian denies using street drugs. - Ebola Screening: : Patient negative for fever greater than or equal to 101.5 degrees Fahrenheit, and additional compatible Ebola Virus Disease symptoms Patient denies exposure to infectious person Patient denies travel to an Ebola-affected area in the 21 days before illness onset. Screenin:13 Abuse screen: Denies threats or abuse. Denies injuries from another. Nutritional ao screening: No deficits noted. Tuberculosis screening: No symptoms or risk factors identified. Fall Risk None identified. Assessment: 01:11 General: Appears in no apparent distress. comfortable. Pain: Complains of pain in ao abdomen Pain does not radiate. Pain currently is 10 out of 10 on a pain scale. Neuro: Level of Consciousness is awake, alert, obeys commands, Oriented to person, place, time, situation, Appropriate for age Moves all extremities. Speech is normal, Facial symmetry appears normal, Pupils are PERRLA. Cardiovascular: Capillary refill < 3 seconds Patient's skin is warm and dry. Respiratory: Airway is patent Respiratory effort is even, unlabored, Respiratory pattern is regular, symmetrical. GI: Abdomen is obese, Bowel sounds present X 4 quads. Abd is soft and non tender X 4 quads. : No signs and/or symptoms were reported regarding the genitourinary system. EENT: No signs and/or symptoms were reported regarding the EENT system. Derm: Skin is intact, Skin is normal, Skin temperature is warm. Musculoskeletal: Circulation, motion, and sensation intact. Range of motion: intact in all extremities. 01:22 Reassessment: Recive a verbal order from Dr Sandoval to start an IV and medicate patient ao with Zofran and bolus 1000 M NS. 02:10 Reassessment: Received a verbal order from Per TABARES to change Morphine to Fentanyl ao 25 Mcg. 03:02 Reassessment: Patient appears in no apparent distress at this time. Patient and/or ao family updated on plan of care and expected duration. Pain level reassessed. Patient is alert, oriented x 3, equal unlabored respirations, skin warm/dry/pink. Patient ambulated to the bathroom. 03:12 Reassessment: Received a verbal order from RAYSHAWN Carrington to medicate patient with ao Zofran 4 mg and Fentanyl 25 Mcg. 04:41 Reassessment: Patient appears in no apparent distress at this time. Patient and/or ao family updated on plan of care and expected duration. Pain level reassessed. Patient is alert, oriented x 3, equal unlabored respirations, skin warm/dry/pink. 05:53 Reassessment: Patient appears in no apparent distress at this time. Patient and/or ao family updated on plan of care and expected duration. Pain level reassessed. Patient is alert, oriented x 3, equal unlabored respirations, skin warm/dry/pink. waiting on dispo. 06:33 Reassessment: Patient appears in no apparent distress at this time. Patient and/or ao family updated on plan of care and expected duration. Pain level reassessed. Patient is alert, oriented x 3, equal unlabored respirations, skin warm/dry/pink. Patient to stay in the hospital. Patient aware of hospitalization and agree with the POC. 07:00 Reassessment: Patient appears in no apparent distress at this time. Patient is alert, sg oriented x 3, equal unlabored respirations, skin warm/dry/pink. at bedside evaluating pt, no new orders received, awaiting 30 to call report to 4th floor, will continue to monitor. 07:30 Reassessment: attempt to call report, pt informed 4th floor not ready for pt at this sg time, pt stated understanding, will attempt to call report in 15 mins. no new orders received, will continue to monitor. Vital Signs: 01:08 BP 180 / 102; Pulse 70; Resp 20; Temp 98.6(O); Pulse Ox 100% on R/A; Weight 99.79 kg ao (R); Height 5 ft. 5 in. (165.10 cm) (R); Pain 10/10; 02:10 BP 172 / 96; Pulse 70; Resp 18; Pulse Ox 99% ; ao 03:03 BP 166 / 94; Pulse 74; Resp 16; Pulse Ox 97% on R/A; ao 04:41 BP 165 / 74; Pulse 72; Resp 16; Pulse Ox 99% on R/A; ao 05:53 BP 155 / 72; Pulse 71; Resp 16; Pulse Ox 97% on R/A; ao 07:46 BP 142 / 70; Pulse 70; Resp 18; Temp 98.6; Pulse Ox 96% on R/A; Pain 4/10; sg 01:08 Body Mass Index 36.61 (99.79 kg, 165.10 cm) ao ED Course: 00:55 Patient arrived in ED. am2 00:55 Out, [facility] is Private Physician. am2 01:06 Chalino Kwok, RENEA is Primary Nurse. ao 01:07 Triage completed. ao 01:08 Arm band placed on right wrist. Patient placed in an exam room, on a stretcher, on ao pulse oximetry, Patient notified of wait time. 01:14 Patient has correct armband on for positive identification. Pulse ox on. NIBP on. ao 01:38 [facility]cinas [facility]. cp 01:38 Cuco Sandoval MD is Attending Physician. cp 02:00 Inserted saline lock: 24 gauge in right forearm, using aseptic technique. ao 04:21 CT Abd/Pelvis - W/Contrast In Process Unspecified. EDMS 06:12 Radha Rawls MD is Hospitalizing Provider. ps1 06:55 Patient moved to radiology via wheelchair. jb2 07:06 X-ray completed. Patient tolerated procedure well. jb2 07:07 Patient moved back from radiology. jb2 07:16 Primary Nurse role handed off by Chalino Kwok, RENEA sv 07:17 Juan Rodriguez, RENEA is Primary Nurse. sg 07:50 No provider procedures requiring assistance completed. Patient admitted, IV remains in sg place. intact, No redness/swelling at site. Administered Medications: 01:54 Drug: NS 0.9% 1000 ml Route: IV; Rate: 1 bolus; Site: right antecubital; ao 03:17 Follow up: IV Status: Completed infusion; IV Intake: 1000ml ao 02:09 Drug: Pepcid 20 mg Route: IVP; Site: right forearm; ao 03:18 Follow up: Response: No adverse reaction ao 02:09 Not Given (Unable to get medication in ER. Page changed to Fentanyl 25 Mcg): morphine 4 ao mg IVP once 02:10 Drug: Zofran 4 mg Route: IVP; Site: right forearm; ao 03:18 Follow up: Response: No adverse reaction ao 02:10 Drug: fentaNYL (PF) 25 mcg Route: IVP; Site: right forearm; ao 03:17 Follow up: Response: No adverse reaction ao 03:16 Drug: Zofran 4 mg Route: IVP; Site: right forearm; ao 05:52 Follow up: Response: No adverse reaction ao 03:17 Drug: fentaNYL (PF) 25 mcg Route: IVP; Site: right forearm; ao 05:52 Follow up: Response: No adverse reaction ao Intake: 03:17 IV: 1000ml; Total: 1000ml. ao Outcome: 06:13 Decision to Hospitalize by Provider. ps1 07:53 Admitted to Med/surg accompanied by tech, family with patient, via stretcher, room 403, sg with chart, Report called to Ronnie MEIER 07:53 Condition: stable 07:53 Instructed on the need for admit, safety practices, Demonstrated understanding of instructions. 08:10 Patient left the ED. sg Signatures: Dispatcher [employer] Shyanne Sargent RN RN sv Gay, Steven, RN RN sg Buechter, Jesse jb2 Eric Encinas PA PA cp Ortiz, Alex, RN RN ao Moreno, Amanda am2 Cuco Sandoval MD MD ps1
[2018-01-10] MEDS ORDERED: ONDANSETRON 4 MG/2 ML VIAL IV PRN (06:18)
[2018-01-10] MEDS ORDERED: MORPHINE 2 MG/ML SYR IV PRN (06:18)
[2018-01-10] MEDS ORDERED: PIPER/TAZO/NS 3.375gm 3.375 GM/100 ML BAG IVPB SCH (06:35)
[2018-01-10] MEDS ORDERED: SODIUM CHLORIDE 0.9% 10ML INJ IV PRN (07:02)
[2018-01-10] MEDS ORDERED: MORPHINE 4 MG/ML SYR IV PRN (07:16)
--- NOTE | 2018-01-10 08:40 | P.HP ---
Certification for Inpatient Patient admitted to: Inpatient With expected LOS: >2 Midnights Patient will require the following post-hospital care: None Practitioner: I am a practitioner with admitting privileges, knowledge of patient current condition, hospital course, and medical plan of care. Services: Services provided to patient in accordance with Admission requirements found in Title 42 Section 412.3 of the Code of Federal Regulations Patient History Date of Service: 01/10/18 Primary Care Provider: Dr. Saenz([place], [place]) Reason for admission: Abdominal pain History of Present Illness: 57-year-old female presented emergency room with abdominal pain. The abdominal pain started last night. This occurred after dinner and taking her medications for blood pressure. The pain started in the epigastric region and then radiated down to the lower abdomen. She rated the pain about a 10/10. He was so stated with nausea but no vomiting. She denied any fever, chills. She also reported some diarrhea. The pain persisted. Patient reports that she was seen by her PCP recently in given antibiotic therapy for possible UTI. She did not report any dysuria at that time. She came to the ER for further evaluation. In the ER patient evaluated. Blood pressure stable. Creatinine 1.2 with a GFR 56. Glucose 126. Amylase 130, lipase 182. Urinalysis unremarkable. CT scan preliminary shows possible small bowel obstruction. The patient was admitted for treatment. When I saw the patient in the ER, she appeared stable. Pain seemed to be improved with medication. Surgery consulted. Patient with history of lap band in 2008. She has not had any prior abdominal problems. Allergies No Known Allergies Allergy (Unverified 11/05/17 14:51) Home medications list reviewed: Yes Home Medications: Atenolol [Tenormin*] 25 mg PO BEDTIME 11/05/17 Pravastatin Sodium 20 mg PO BEDTIME 11/05/17 - Past Medical/Surgical History Diabetic: No -: Hypertension -: Hyperlipidemia -: History of lap band -: Knee surgery -: Lap band procedure Psychosocial/ Personal History: The patient is . She has 2 children. - Family History Father -: Heart disease, Hypertension, Diabetes Mother -: Cancer - Social History Smoking Status: Never smoker Alcohol use: No CD- Drugs: No Caffeine use: No Place of Residence: Home Review of Systems General: As per HPI Eyes: Unremarkable ENT: Unremarkable Respiratory: Unremarkable Cardiovascular: Unremarkable Gastrointestinal: Nausea, Abdominal Pain, Diarrhea, As per HPI Genitourinary: Unremarkable Musculoskeletal: Unremarkable Integumentary: Unremarkable Neurological: Unremarkable Lymphatics: Unremarkable Physical Examination - Vital Signs Temperature: 97.2 F Blood Pressure: 146/78 Pulse: 70 Respirations: 16 Pulse Ox (%): 96 - Physical Exam General: Alert, In no apparent distress, Oriented x3, Cooperative HEENT: Atraumatic, Normocephalic, PERRLA, Mucous membr. moist/pink Neck: Supple, No Thyromegaly Respiratory: Clear to auscultation bilaterally, Normal air movement Cardiovascular: Normal pulses, Regular rate/rhythm Gastrointestinal: Normal bowel sounds, Soft and benign, Non-distended, No masses , No rebound, No guarding, Tenderness (Mild pain to the lower quadrant) Musculoskeletal: No erythema, No tenderness, No warmth Integumentary: No tenderness/swelling, No erythema, No warmth, No cyanosis Neurological: Normal speech, Normal strength at 5/5 x4 extr, Normal tone, Normal affect Lymphatics: No axilla or inguinal lymphadenopathy - Studies Laboratory Data (last 24 hrs) 01/10/18 02:16: Creatinine 1.20 01/10/18 02:16: WBC 9.6, Hgb 14.0, Hct 43.3, Plt Count 273 01/10/18 02:16: Sodium 140, Potassium 3.8, BUN 19 H, Creatinine 1.20, Glucose 126 H, Total Bilirubin 0.4, AST 19, ALT 25, Alkaline Phosphatase 91, Amylase 130 H, Lipase 182 Assessment and Plan - Problems (Diagnosis) (1) Abdominal pain Current Visit: Yes Status: Acute Plan: Initial preliminary CT scan as reported by ER indicates small-bowel obstruction. Patient with history of lap band procedure. Patient NPO at this time. Will continue antibiotic therapy. Will provide PPI. Will monitor closely. Surgery has been consulted. Await further recommendations. Will encourage ambulation. Qualifiers: Abdominal location: lower abdomen, unspecified Qualified Code(s): R10.30 - Lower abdominal pain, unspecified (2) Small bowel obstruction Current Visit: Yes Status: Acute Plan: Await final results of CT scan. Preliminary results as report by ER shows small bowel obstruction. Patient with history of lap band procedure. Surgery consulted. (3) Hypertension Current Visit: Yes Status: Chronic Plan: Will provide IV medication. Will monitor and adjust appropriately. Qualifiers: Hypertension type: essential hypertension Qualified Code(s): I10 - Essential (primary) hypertension (4) Renal insufficiency Current Visit: Yes Status: Acute Plan: Likely from mild dehydration. Will continue IV fluids. Will monitor and adjust appropriately. (5) Hyperlipidemia Current Visit: No Status: Chronic Plan: Will continue with her medication. Qualifiers: Hyperlipidemia type: unspecified Qualified Code(s): E78.5 - Hyperlipidemia , unspecified (6) GERD (gastroesophageal reflux disease) Current Visit: Yes Status: Suspected Plan: Will provide PPI. Qualifiers: Esophagitis presence: esophagitis presence not specified Qualified Code(s) : K21.9 - Gastro-esophageal reflux disease without esophagitis Discharge Plan: Home Plan to discharge in: 48 Hours - Advance Directives Does patient have a Living Will: No Does patient have a Durable POA for Healthcare: No - Code Status/Comfort Care Code Status Assessed: Yes Time Spent Managing Pts Care (In Minutes): 55
--- NOTE | 2018-01-10 08:47 | RAD REPORT ---
EXAM DESCRIPTION: CT - Abdomen Pelvis W Contrast - 01/10/2018 6:22 am CLINICAL HISTORY: Abdominal pain. With nausea, vomiting and diarrhea surgery date 6+ months gastric surgery COMPARISON: None. TECHNIQUE: Computed axial tomography of the abdomen and pelvis was obtained. 100 cc Isovue-300 is ad ministered intravenously. Oral contrast was given.A preliminary report was generated by [employer] and reviewed prior to this dictation All CT scans are performed using dose optimization technique as appropriate and may include automated exposure control or mA/KV adjustment according to patient size. FINDINGS: The liver, spleen, pancreas, adrenals and kidneys appear unremarkable. The appendix is not seen. There is no evidence of diverticulitis. Jejunum is dilated. Most of the ileum is decompressed. Small amount of fluid is present within the me sentery. Diastases of the rectus abdominis muscles of a couple centimeters is present. A gastric band is in place. A small to moderate hiatal hernia is present. The wall of the distal esop hagus is thickened. Contrast is present within the esophagus. IMPRESSION: Mildly dilated jejunum may indicate a mechanical obstruction. Contrast within the distal esophagus compatible with GE reflux. Thickening of the wall probably indic ates an esophagitis
[2018-01-10] MEDS ORDERED: PANTOPRAZOLE 40 MG INJ IVP SCH (09:00)
--- NOTE | 2018-01-10 09:17 | RAD REPORT ---
EXAM DESCRIPTION: RAD - Abdomen W Erect - 01/10/2018 7:11 am CLINICAL HISTORY: Abdominal pain FINDINGS: The small bowel caliber has diminished since the prior CAT scan. Air is present within por tions of the colon. Free air is not seen beneath the diaphragm. Suspected small bowel obstruction appears improved
[2018-01-10] MEDS: NA CHLORIDE 0.9% 1,000 ML IV SCH ×3 (10:35→20:44)
[2018-01-10] MEDS: PIPER/TAZO/NS 3.375gm 3.375 GM/100 ML BAG IVPB SCH ×3 (10:36→20:43)
--- NOTE | 2018-01-10 12:58 | P.CNS ---
Date of Consult: 01/10/18 PC: I was asked to see this patient regards to her abdominal pain. HPC: Patient had sudden onset of abdominal pain, located in the upper portion of her abdomen yesterday after she ate. Describes as a hard cramping abdominal pain. PMH: Morbid obesity PSHx: Previous lap band, has not had an adjustment and while but has had a 70 lb overall weight loss SOC: No known allergies SYS REVIEW: No cough, wheeze, shortness of breath. No chest pain or palpitations. No urinary complaints O/E awake alert stable HEENT: Not jaundice Chest: Chest movement equal bilaterally ABD: Soft nontender no masses palpable LOCO: Intact DATA: CT scan suggested early possible small-bowel obstruction but at the current time patient's abdomen is benign, she feels much improved, is anxious to eat IMPRESSION: No was bowel obstruction at the current time PLAN: Patient be started on a diet, and his tolerates will be discharged. She does not require surgical intervention at this time.
[2018-01-10] MEDS ORDERED: HYDROCODONE/APAP 7.5/325 MG TAB PO PRN (14:48)
[2018-01-10] MEDS ORDERED: TRAMADOL HCL 50 MG TAB PO PRN (14:48)
[2018-01-10] MEDS: HYDRALAZINE HCL 20 MG/ML VIAL IV PRN (15:40)
[2018-01-10] MEDS: PANTOPRAZOLE 40 MG INJ IVP SCH (20:43)
[2018-01-10] MEDS ORDERED: ATORVASTATIN 10 MG TAB PO SCH (21:00)
[2018-01-10] MEDS ORDERED: ATENOLOL 25 MG TAB PO SCH (21:00)
[2018-01-11] MEDS: ACETAMINOPHEN 500 MG TAB PO PRN ×2 (01:00→06:58)
[2018-01-11] MEDS: PIPER/TAZO/NS 3.375gm 3.375 GM/100 ML BAG IVPB SCH ×2 (02:08→09:06)
[2018-01-11 04:54] LABS: Absolute Monocytes 0.6 K/uL (0.1-1.3); Absolute Neutrophil 4.2 K/uL (1.8-8.0); Basophils % 0.7 % (0-1.3); Eosinophils % 1.8 % (0-4.4); Hematocrit 39.7 % (36.0-45.0); Lymphocytes % 16.9 % (15.3-44.8); MCH 29.2 pg (27.0-35.0); MCV 88.4 fL (80-100); MPV 9.5 fL (7.6-11.3); Monocytes % 9.6 % (3.3-12.3); RBC Red Blood Cell Count 4.48 M/uL (3.86-4.86)
[2018-01-11 05:02] LABS: Bilirubin Total 0.8 mg/dL (0.2-1.0); Potassium 4.1 mmol/L (3.5-5.1); Protein, Total 7.1 g/dL (6.4-8.2)
--- NOTE | 2018-01-11 08:28 | P.DS ---
Admission Date: 01/10/18 Discharge Date: 01/11/18 Primary Care Provider: Dr. Saenz([place], [place]) Disposition: ROUTINE DISCHARGE Discharge Condition: GOOD Reason for Admission: Abdominal pain Consultations: Surgery-Dr. Hernadez Procedures: CT scan: FINDINGS:The liver, spleen, pancreas, adrenals and kidneys appear unremarkable. The appendix is not seen. There is no evidence of diverticulitis. Jejunum is dilated. Most of the ileum is decompressed. Small amount of fluid is present within the mesentery. Diastases of the rectus abdominis muscles of a couple centimeters is present. A gastric band is in place. A small to moderate hiatal hernia is present. The wall of the distal esophagus is thickened. Contrast is present within the esophagus. IMPRESSION: Mildly dilated jejunum may indicate a mechanical obstruction. Contrast within the distal esophagus compatible with GE reflux. Thickening of the wall probably indicates an esophagitis Follow up KUB shows no small bowel obstruction - Problems (1) Abdominal pain Onset Date: 01/10/18 Current Visit: Yes Status: Acute Qualifiers: Abdominal location: lower abdomen, unspecified Qualified Code(s): R10.30 - Lower abdominal pain, unspecified (2) Small bowel obstruction Onset Date: 01/10/18 Current Visit: Yes Status: Acute (3) Hypertension Onset Date: 01/10/18 Current Visit: Yes Status: Chronic Qualifiers: Hypertension type: essential hypertension Qualified Code(s): I10 - Essential (primary) hypertension (4) Renal insufficiency Onset Date: 01/10/18 Current Visit: Yes Status: Acute (5) Hyperlipidemia Onset Date: 01/10/18 Current Visit: Yes Status: Chronic Qualifiers: Hyperlipidemia type: unspecified Qualified Code(s): E78.5 - Hyperlipidemia , unspecified (6) GERD (gastroesophageal reflux disease) Onset Date: 01/10/18 Current Visit: Yes Status: Suspected Qualifiers: Esophagitis presence: esophagitis presence not specified Qualified Code(s) : K21.9 - Gastro-esophageal reflux disease without esophagitis (7) Esophagitis Current Visit: Yes Status: Suspected (8) Obesity Current Visit: Yes Status: Chronic Qualifiers: Obesity type: due to excess calories Obesity classification: adult class 2 (BMI 35 - 39.9) Serious obesity comorbidity presence: with serious comorbidity Body mass index: BMI 36.0-36.9 Qualified Code(s): E66.01 - Morbid (severe) obesity due to excess calories; Z68.36 - Body mass index (BMI) 36.0-36.9, adult Brief History of Present Illness: 57-year-old female presented emergency room with abdominal pain. The abdominal pain started last night. This occurred after dinner and taking her medications for blood pressure. The pain started in the epigastric region and then radiated down to the lower abdomen. She rated the pain about a 10/10. He was so stated with nausea but no vomiting. She denied any fever, chills. She also reported some diarrhea. The pain persisted. Patient reports that she was seen by her PCP recently in given antibiotic therapy for possible UTI. She did not report any dysuria at that time. She came to the ER for further evaluation. In the ER patient evaluated. Blood pressure stable. Creatinine 1.2 with a GFR 56. Glucose 126. Amylase 130, lipase 182. Urinalysis unremarkable. CT scan preliminary shows possible small bowel obstruction. The patient was admitted for treatment. When I saw the patient in the ER, she appeared stable. Pain seemed to be improved with medication. Surgery consulted. Patient with history of lap band in 2008. She has not had any prior abdominal problems. Hospital Course: The patient had abdominal pain. Patient found to have early small bowel obstruction with possible esophagitis. This resolved. Patient was evaluated by surgery. No surgical intervention was required. At discharge patient was able to tolerate a diet. No significant abdominal pain, nausea vomiting was noted. Follow up KUB shows no small bowel obstruction. At discharge she will continue with a soft diet as tolerated. No antibiotics is recommended at this time. Patient may follow up with surgery as an outpatient. Recommendation is for the patient to follow up with GI as an outpatient as the patient may require EGD/colonoscopy in 4-6 weeks to further address her care. Recommendation is for the patient to continue with Protonix 40 mg 1 pill once daily. Patient has hypertension. She will continue with her medication-atenolol 25 mg daily and lisinopril 20 mg daily. Recommendation is to maintain blood pressures less 150/80. Further adjustment can be done by her PCP. Patient has hyperlipidemia. Patient will continue with pravastatin [address] scan shows possible esophagitis. At discharge patient will continue with Protonix 40 mg 1 pill once daily. Recommendation is for the patient follow up with GI as an outpatient to further evaluate. Patient will likely need EGD evaluation. Vital Signs/Physical Exam: Temp Pulse Resp BP Pulse Ox 97.7 F 63 18 141/82 H 98 01/11/18 04:00 01/11/18 04:00 01/11/18 04:00 01/11/18 04:00 01/11/18 04:00 General: Alert, In no apparent distress, Oriented x3, Cooperative HEENT: Atraumatic, Mucous membr. moist/pink Neck: Supple, No Thyromegaly Respiratory: Clear to auscultation bilaterally, Normal air movement Cardiovascular: Normal pulses, Regular rate/rhythm Gastrointestinal: Normal bowel sounds, Soft and benign, Non-distended, No tenderness, No masses, No rebound, No guarding Musculoskeletal: No erythema, No tenderness, No warmth Integumentary: No tenderness/swelling, No erythema, No warmth, No cyanosis Neurological: Normal speech, Normal strength at 5/5 x4 extr, Normal tone, Normal affect Laboratory Data at Discharge: WBC 5.9 K/uL (4.3-10.9) D 01/11/18 04:15 Hgb 13.1 g/dL (12.0-15.0) 01/11/18 04:15 Hct 39.7 % (36.0-45.0) 01/11/18 04:15 Plt Count 242 K/uL (152-406) 01/11/18 04:15 Sodium 142 mmol/L (136-145) 01/11/18 04:15 Potassium 4.1 mmol/L (3.5-5.1) 01/11/18 04:15 BUN 10 mg/dL (7-18) 01/11/18 04:15 Creatinine 1.10 mg/dL (0.55-1.3) 01/11/18 04:15 Glucose 90 mg/dL (74-106) 01/11/18 04:15 Total Bilirubin 0.8 mg/dL (0.2-1.0) 01/11/18 04:15 AST 18 U/L (15-37) 01/11/18 04:15 ALT 21 U/L (12-78) 01/11/18 04:15 Alkaline Phosphatase 73 U/L (45-117) 01/11/18 04:15 Amylase 75 U/L (25-115) D 01/11/18 04:15 Lipase 47 U/L (73-393) L 01/11/18 04:15 Home Medications: Atenolol [Tenormin*] 25 mg PO BEDTIME 11/05/17 Pravastatin Sodium 20 mg PO BEDTIME 11/05/17 Cholecalciferol (Vitamin D3) [Vitamin D3] 1 cap PO DAILY 01/10/18 Lisinopril [Prinivil*] 20 mg PO DAILY 01/10/18 Pantoprazole [Protonix Tab] 40 mg PO DAILY #30 tab 01/11/18 New Medications: Pantoprazole [Protonix Tab] 40 mg PO DAILY #30 tab Patient Discharge Instructions: 1. Patient will need a follow up with a PCP in 1 week to follow up this hospitalization. 2. Patient presented with abdominal pain scan showed early small bowel obstruction with esophagitis. This resolved. Patient seen by surgery. No surgical infection needed. At discharge she will continue with Protonix 40 mg 1 pill once daily. Patient will continue with a GI soft diet advanced as tolerated. Recommendation is for the patient to follow up with GI as an outpatient to further assess. Patient may require a EGD and colonoscopy in the future. 3. Patient has hypertension. Patient will continue with her medication-atenolol 25 mg daily and lisinopril 20 mg daily. Recommendation is to maintain blood pressures less 150/80. Further adjustment can be done by her PCP. 4. Patient has hyperlipidemia. Patient will continue with pravastatin [address] scan shows possible esophagitis. At discharge she will continue with Protonix 40 mg 1 pill once daily. Recommendation is for the patient follow up with GI as an outpatient to further assess. Patient will require EGD. Diet: GI soft advance as tolerated Activity: Ad fede Time spent managing pt's care (in minutes): 55
--- NOTE | 2018-01-11 08:52 | RAD REPORT ---
EXAM DESCRIPTION: RAD - Abdomen 1 View (KUB) - 01/11/2018 7:50 am CLINICAL HISTORY: Follow up esophagitis/SBO Pain COMPARISON: Abdomen W Erect dated 01/10/2018; Abdomen Pelvis W Contrast dated 01/10/2018 FINDINGS: The bowel gas pattern is non-obstructive. No evidence of free air or pneumatosis. Gastric banding is noted. Moderate colonic contrast seen. No significant bony findings. The lung bases are grossly clear. IMPRESSION: No evidence of SBO.
[2018-01-11] MEDS: HYDRALAZINE HCL 20 MG/ML VIAL IV PRN (09:01)
[2018-01-11] MEDS: PANTOPRAZOLE 40 MG INJ IVP SCH (09:06)
== END 2018-01-11 12:22 | disposition home or self-care (01) | DRG 390 ==
LOC: ER 00:54 → ERHOLD 06:18 → 4TH 07:42
PROVIDERS: ADMIT Hospitalist; ATTEND Family Medicine
DX: K56.609 Unspecified intestinal obstruction, unspecified as to partial versus complete obstruction (principal); I10 Essential (primary) hypertension; Z98.84 Bariatric surgery status; N28.9 Disorder of kidney and ureter, unspecified; K21.0 Gastro-esophageal reflux disease with esophagitis; E78.5 Hyperlipidemia, unspecified; E66.01 Morbid (severe) obesity due to excess calories; Z68.36 Body mass index [BMI] 36.0-36.9, adult; E86.0 Dehydration
CPT/HCPCS: 36415; 74018; 74019; 74177; 80048; 80053; 80076; 81003; 81015; 82150; 83690; 85025; 96361; 96374; 96375; 99285; C9113; J0360; J2270; J2405; J2543; J3010; J7030; Q9967